=== PATIENT | female | born 1980 | race Caucasian/White ===

== ENCOUNTER → 2017-06-06 16:01 | Outpatient (CLI) | payer OTHER, SELFPAY ==
[2017-06-13 11:08] LABS: HPV APTIMA, High Risk Negative (Negative)
== END ==
PROVIDERS: Visit Provider Nurse Practitioner Women's Health
DX: Z12.4 Encounter for screening for malignant neoplasm of cervix (principal)
CPT/HCPCS: 88175; G0145

== ENCOUNTER → 2017-10-23 06:01 | Outpatient (CLI) | payer OTHER, SELFPAY ==
[2017-10-23 07:52] LABS: AST(SGOT) 33 U/L (15-37); Alanine Aminotransfer ALT/SGPT 56 U/L (13-56); Albumin, Serum 3.5 g/dL (3.2-5.0); Alkaline Phosphatase 72 U/L (45-117); Anion Gap 8 (5-15); BUN 13 mg/dL (7-18); BUN/Creat Ratio 15.4 RATIO (10-20); Calcium,Total 8.3 mg/dL (8.5-10.1); Chloride 105 mmol/L (98-107); Cholesterol 95 mg/dL (200); Creatinine, Serum 0.84 mg/dL (0.55-1.02); EST Glomerular Filtration Rate 80 mL/min (>60); Est Glom Filt Rate - Afr Amer 97 mL/min (>60); Globulin 3.6 g/dL (2.2-4.2); Glucose 135 mg/dL (74-106); High Density Lipoprotein 35 mg/dL; Potassium 3.9 mmol/L (3.5-5.1); Protein, Total 7.1 g/dL (6.4-8.2); Sodium Level 139 mmol/L (136-145); T4 Free Direct 1.48 ng/dL (0.76-1.46); Triglycerides 170 mg/dL; Very Low Density Lipoprotein 34 mg/dL (5-40)
[2017-10-23 08:30] LABS: Hemoglobin A1c 6.8 % (4.2-6.3)
[2017-10-23 11:29] LABS: Microalbumin,Random Urine < 5.0 mg/L (NO RANGE EST.)
== END ==
DX: E11.69 Type 2 diabetes mellitus with other specified complication (principal); E78.2 Mixed hyperlipidemia; E03.8 Other specified hypothyroidism; E06.3 Autoimmune thyroiditis; Z08 Encounter for follow-up examination after completed treatment for malignant neoplasm; Z85.850 Personal history of malignant neoplasm of thyroid; Z90.89 Acquired absence of other organs; E66.09 Other obesity due to excess calories; Z68.38 Body mass index [BMI] 38.0-38.9, adult; Z79.84 Long term (current) use of oral hypoglycemic drugs; Z92.3 Personal history of irradiation; R59.9 Enlarged lymph nodes, unspecified
CPT/HCPCS: 36415; 80053; 80061; 82043; 82570; 83036; 84439; 84443

== ENCOUNTER → 2017-10-23 15:03 | Outpatient (CLI) | payer OTHER, SELFPAY ==
--- NOTE | 2017-10-23 15:06 | US_ITS ---
STUDY: THYROID ULTRASOUND REASON FOR EXAM: Female, 36 years old. Lymph nodes TECHNIQUE: Ultrasound evaluation of the thyroid was performed with real-time and static anderson-scale imaging. COMPARISON: May 02, 2017. FINDINGS: RIGHT LOBE: Status right post thyroidectomy. LEFT LOBE: Status left post thyroidectomy. There is a cyst within the left thyroid region measuring 3 mm. 3 lymph nodes and blood noted lateral to the right thyroid region measuring 1.1 to 1.3 cm. A lymph node is noted lateral to the left thyroid region measuring 1.8 cm. US/Thyroid IMPRESSION: Multiple lymph nodes are again noted bilaterally which do not appear to be pathologic. Small cyst in the left thyroid region. Status post thyroidectomy. Electronically Signed: Feliberto Bateman DO at 23:44 EDT Tel [phone], Service support ,
== END ==
DX: R59.9 Enlarged lymph nodes, unspecified (principal); E03.8 Other specified hypothyroidism; E06.3 Autoimmune thyroiditis; Z08 Encounter for follow-up examination after completed treatment for malignant neoplasm; Z85.850 Personal history of malignant neoplasm of thyroid
CPT/HCPCS: 76536

== ENCOUNTER → 2018-05-07 06:30 | Outpatient (CLI) | payer OTHER, SELFPAY ==
[2017-12-19 17:00] VITALS: BMI 40.9
[2018-05-07 07:13] LABS: Microalbumin,Random Urine 5.2 mg/L (NO RANGE EST.); Microalbumin:Creatinine Ratio 3.4 mg/g CRE (<30 mg/g CRE)
[2018-05-07 07:39] LABS: AST(SGOT) 33 U/L (15-37); Alanine Aminotransfer ALT/SGPT 53 U/L (13-56); Albumin, Serum 3.6 g/dL (3.2-5.0); Alkaline Phosphatase 68 U/L (45-117); Anion Gap 11 (5-15); BUN 11 mg/dL (7-18); BUN/Creat Ratio 13.1 RATIO (10-20); Calcium,Total 8.7 mg/dL (8.5-10.1); Chloride 105 mmol/L (98-107); Cholesterol 116 mg/dL (200); Creatinine, Serum 0.84 mg/dL (0.55-1.02); EST Glomerular Filtration Rate 80 mL/min (>60); Est Glom Filt Rate - Afr Amer 97 mL/min (>60); Globulin 3.5 g/dL (2.2-4.2); Glucose 157 mg/dL (74-106); High Density Lipoprotein 36 mg/dL; Protein, Total 7.1 g/dL (6.4-8.2); Sodium Level 140 mmol/L (136-145); T4 Free Direct 1.62 ng/dL (0.76-1.46); Thyroid Stim Hormone (TSH) 0.69 uIU/mL (0.358-3.74); Triglycerides 200 mg/dL; Very Low Density Lipoprotein 40 mg/dL (5-40)
[2018-05-07 08:21] LABS: Hemoglobin A1c 7.4 % (4.2-6.3)
== END ==
DX: E11.69 Type 2 diabetes mellitus with other specified complication (principal); E78.2 Mixed hyperlipidemia; E03.8 Other specified hypothyroidism; E06.3 Autoimmune thyroiditis; Z08 Encounter for follow-up examination after completed treatment for malignant neoplasm; Z85.850 Personal history of malignant neoplasm of thyroid
CPT/HCPCS: 36415; 80053; 80061; 82043; 82570; 83036; 84439; 84443

== ENCOUNTER → 2018-07-01 07:14 | Outpatient (CLI) | payer OTHER, SELFPAY ==
[2017-12-19 17:00] VITALS: BMI 40.9
[2018-07-01 07:33] LABS: Hematocrit 42.6 % (37-47); Mean Corp Hgb Conc 32.9 g/gl (32-36); Mean Corpuscular Hgb 28.4 pg (27.0-32.0); Mean Corpuscular Volume 86.4 fL (81-99); Mean Platelet Vol. 10.3 fl (6.2-12.0); Platelet Count 241 K/mm3 (150-450); RBC Distribution Width CV 12.9 % (11.6-14.6); RBC Distribution Width SD 39.9 fl (35.1-43.9); Red Blood Count 4.93 M/mm3 (4.2-5.4)
[2018-07-01 07:35] LABS: Scan Indicated on CBC? Y/N NO
== END ==
DX: D64.9 Anemia, unspecified (principal); R53.83 Other fatigue
CPT/HCPCS: 36415; 85027

== ENCOUNTER 2018-07-17 11:50 | Emergency (ER) | payer OTHER, SELFPAY ==
[2018-07-17 11:51] VITALS: BP 136/84; PULSE 111; RESP 16; TEMP 36.4; O2SAT 95; BMI 39.9
--- NOTE | 2018-07-17 12:15 | RAD_ITS ---
STUDY: X-RAY - LEFT ANKLE REASON FOR EXAM: Female, 37 years old. No left ankle, swelling. TECHNIQUE: 3 view(s) of the ankle. COMPARISON: None. FINDINGS: Normal visualized distal tibia and fibula. Normal medial and lateral malleoli. Normal tibiotalar articulation and ankle mortise. Normal visualized talus and calcaneus. The visualized subtalar, talonavicular, calcaneocuboid and tarsal articulations are normal. There is no demonstrated fracture. Mild anterolateral soft tissue swelling. RAD/Ankle min 3 Views IMPRESSION: Anterolateral soft tissue swelling. No acute fracture of the left ankle. Electronically Signed: Nishant Cruz MD at 12:37 EDT , Service support ,
--- NOTE | 2018-07-17 12:51 | ED.DCSUM_ITS ---
- ER Visit Summary Date of Service: 07/17/18 Chief Complaint: Ankle pain History of Present Illness: The patient is a 37 F with left lateral ankle pain after rolling it at work. No other injuries or complaints. Physical Examination: Patient has left lateral ankle tenderness and swelling. No deformity otherwise. No laxity. Neurovascular intact distally. Skin intact. Test Results: X-rays show soft tissue swelling without fracture. Emergency Department Course and Treatment: Patient declined pain medicine. Aircast, crutches. Rest, ice, elevate. Vbpy-[id number] medicine for pain. Follow-up with [facility]. Treatment Plan: As above Disposition: Discharge Impression: 1. Left ankle sprain This note was generated with [employer] dictation software. It may contain incorrect words, spelling, and punctuation that were not noted in review of the chart prior to signing ED Disposition - Plan for ED Patient: Referrals: [facility] Doctor,Out of [Primary Care Provider] -
--- NOTE | 2018-07-17 12:51 | ED.DEP ---
ED Disposition - Plan for ED Patient: Instructions: ED Sprain Ankle W X Ray Referrals: [facility] [GROUP OF PHYSICIANS] -
== END 2018-07-17 13:41 | disposition home or self-care (01) ==
LOC: ED 12:48
PROVIDERS: Emergency Provider Emergency Medicine
DX: S93.402A Sprain of unspecified ligament of left ankle, initial encounter (principal); X50.1XXA Overexertion from prolonged static or awkward postures, initial encounter; Y93.89 Activity, other specified; Y92.89 Other specified places as the place of occurrence of the external cause; Y99.0 Civilian activity done for income or pay
CPT/HCPCS: 73610; 99283

== ENCOUNTER → 2018-07-23 05:32 | Outpatient (CLI) | payer OTHER, SELFPAY ==
[2018-07-19 06:12] VITALS: BMI 39.9
[2018-07-23 08:47] LABS: T4 Free Direct 1.43 ng/dL (0.76-1.46); Thyroid Stim Hormone (TSH) 3.97 uIU/mL (0.358-3.74)
== END ==
DX: E03.8 Other specified hypothyroidism (principal); E06.3 Autoimmune thyroiditis; Z08 Encounter for follow-up examination after completed treatment for malignant neoplasm; Z85.850 Personal history of malignant neoplasm of thyroid
CPT/HCPCS: 36415; 84439; 84443

== ENCOUNTER → 2018-11-13 | Outpatient (CLI) | payer OTHER, SELFPAY ==
[2018-07-19 06:12] VITALS: BMI 39.9
--- NOTE | 2018-11-13 16:23 | US_ITS ---
ACR Level 3 findings have been noted. An addendum which confirms receipt of the report will follow. STUDY: THYROID ULTRASOUND REASON FOR EXAM: Female, 37 years old. History of thyroid cancer. TECHNIQUE: Ultrasound evaluation of the thyroid was performed with real-time and static anderson-scale imaging. COMPARISON: Thyroid ultrasound 05/02/2017 and 10/23/2017. FINDINGS: RIGHT LOBE: Status post thyroidectomy with no visible residual right thyroid tissue. LEFT LOBE: Status post thyroidectomy with no visible left-sided thyroid tissue. Similar to 10/24/2015 is a 0.4 cm cyst in the region of the left thyroidectomy bed. ISTHMUS: Status post thyroidectomy. No residual isthmic tissue is evident. 3 lymph nodes were measured lateral to the right thyroid bed. These measure 1.4 x 1.0 x 0.6 cm, 0.9 x 0.6 x 0.6 cm, and 1.2 x 0.7 x 0.5 cm and are similar to 10/23/2017. There is no evidence of lymph node necrosis or cystic change. A single lymph node lateral to the left lobe of thyroid measures 3.0 x 0.6 x 1.5 cm with no necrosis or cystic change. On the previous study, this lymph node measured 1.8 cm in greatest dimension. US/Thyroid IMPRESSION: Status post thyroidectomy with no appreciable residual thyroid tissue. Interval enlargement of a left-sided lymph node. While nonspecific, recurrence cannot be excluded. Consider follow-up nuclear medicine study, the type of which would depend on the pathology of the original thyroid cancer. Alternatively, the lymph node could be biopsied or closely followed. Electronically Signed: Ubaldo Perera, at 17:19 EDT Tel , Service support ,
== END | disposition home or self-care (01) ==
LOC: US 16:18
DX: R59.9 Enlarged lymph nodes, unspecified (principal); Z08 Encounter for follow-up examination after completed treatment for malignant neoplasm; Z85.850 Personal history of malignant neoplasm of thyroid
CPT/HCPCS: 76536

== ENCOUNTER → 2018-11-15 | Outpatient (CLI) | payer OTHER, SELFPAY ==
[2018-07-19 06:12] VITALS: BMI 39.9
[2018-11-15 08:29] LABS: Hemoglobin A1c 6.9 % (4.2-6.3); Microalbumin,Random Urine < 5.0 mg/L (NO RANGE EST.)
[2018-11-15 08:31] LABS: AST(SGOT) 28 U/L (15-37); Alanine Aminotransfer ALT/SGPT 50 U/L (13-56); Albumin, Serum 3.5 g/dL (3.2-5.0); Alkaline Phosphatase 71 U/L (45-117); Anion Gap 10 (5-15); BUN 15 mg/dL (7-18); BUN/Creat Ratio 18.2 RATIO (10-20); Calcium,Total 8.5 mg/dL (8.5-10.1); Chloride 104 mmol/L (98-107); Cholesterol 100 mg/dL (200); Creatinine, Serum 0.82 mg/dL (0.55-1.02); EST Glomerular Filtration Rate 82 mL/min (>60); Est Glom Filt Rate - Afr Amer 99 mL/min (>60); Globulin 3.5 g/dL (2.2-4.2); Glucose 156 mg/dL (74-106); High Density Lipoprotein 32 mg/dL; Sodium Level 138 mmol/L (136-145); Thyroid Stim Hormone (TSH) 6.65 uIU/mL (0.358-3.74); Triglycerides 204 mg/dL; Very Low Density Lipoprotein 41 mg/dL (5-40)
== END | disposition home or self-care (01) ==
LOC: LAB 07:00
DX: E03.8 Other specified hypothyroidism (principal); E06.3 Autoimmune thyroiditis; E11.69 Type 2 diabetes mellitus with other specified complication; E78.2 Mixed hyperlipidemia; Z08 Encounter for follow-up examination after completed treatment for malignant neoplasm; Z85.850 Personal history of malignant neoplasm of thyroid; Z79.84 Long term (current) use of oral hypoglycemic drugs
CPT/HCPCS: 36415; 80053; 80061; 82043; 82570; 83036; 84439; 84443

== ENCOUNTER → 2019-01-13 06:56 | Outpatient (CLI) | payer OTHER, SELFPAY ==
[2018-07-19 06:12] VITALS: BMI 39.9
[2019-01-13 08:10] LABS: T4 Free Direct 1.45 ng/dL (0.76-1.46); Thyroid Stim Hormone (TSH) 2.88 uIU/mL (0.358-3.74)
[2019-01-13 08:47] LABS: Vitamin D,25 Hydroxy 26.9 ng/mL (29.95-100.01)
== END ==
DX: E55.9 Vitamin D deficiency, unspecified (principal); E03.8 Other specified hypothyroidism; E06.3 Autoimmune thyroiditis
CPT/HCPCS: 36415; 82306; 84439; 84443

== ENCOUNTER → 2019-05-23 07:07 | Outpatient (CLI) | payer OTHER, SELFPAY ==
[2018-07-19 06:12] VITALS: BMI 39.9
[2019-05-23 07:55] LABS: Hematocrit 38.8 % (37-47); Hemoglobin 12.6 g/dL (12.0-15.0); Mean Corp Hgb Conc 32.5 g/dL (32-36); Mean Corpuscular Hgb 27.5 pg (27.0-32.0); Mean Corpuscular Volume 84.7 fL (81-99); Mean Platelet Vol. 10.4 fl (6.2-12.0); Platelet Count 223 K/mm3 (150-450); RBC Distribution Width CV 13.4 % (11.6-14.6); RBC Distribution Width SD 41.2 fl (35.1-43.9); Red Blood Count 4.58 M/mm3 (4.2-5.4); White Blood Count 5.9 K/mm3 (4.4-11.0)
[2019-05-23 08:15] LABS: Hemoglobin A1c 6.8 % (4.2-6.3)
[2019-05-23 08:26] LABS: AST(SGOT) 29 U/L (15-37); Alanine Aminotransfer ALT/SGPT 49 U/L (13-56); Albumin, Serum 3.7 g/dL (3.2-5.0); Alkaline Phosphatase 65 U/L (45-117); Anion Gap 7 (5-15); BUN 10 mg/dL (7-18); BUN/Creat Ratio 11.6 RATIO (10-20); Calcium,Total 8.6 mg/dL (8.5-10.1); Chloride 106 mmol/L (98-107); Cholesterol 88 mg/dL (200); Creatinine, Serum 0.86 mg/dL (0.55-1.02); EST Glomerular Filtration Rate 78 mL/min (>60); Est Glom Filt Rate - Afr Amer 94 mL/min (>60); Globulin 3.7 g/dL (2.2-4.2); Glucose 153 mg/dL (74-106); High Density Lipoprotein 33 mg/dL; Potassium 3.8 mmol/L (3.5-5.1); Protein, Total 7.4 g/dL (6.4-8.2); Sodium Level 137 mmol/L (136-145); Thyroid Stim Hormone (TSH) 0.96 uIU/mL (0.358-3.74); Triglycerides 126 mg/dL; Very Low Density Lipoprotein 25 mg/dL (5-40)
[2019-05-23 08:40] LABS: Vitamin D,25 Hydroxy 28.1 ng/mL (29.95-100.01)
[2019-05-23 09:44] LABS: Microalbumin,Random Urine 12.9 mg/L (NO RANGE EST.); Microalbumin:Creatinine Ratio 6.2 mg/g CRE (<30 mg/g CRE)
[2019-05-26 14:43] LABS: Thyroglobulin Antibody < 1.0 IU/mL (0.0-0.9)
== END ==
PROVIDERS: PCP Family Medicine
DX: D64.9 Anemia, unspecified (principal); R53.83 Other fatigue; E11.69 Type 2 diabetes mellitus with other specified complication; E78.2 Mixed hyperlipidemia; E03.8 Other specified hypothyroidism; E06.3 Autoimmune thyroiditis; Z08 Encounter for follow-up examination after completed treatment for malignant neoplasm; Z85.850 Personal history of malignant neoplasm of thyroid; E55.9 Vitamin D deficiency, unspecified
CPT/HCPCS: 36415; 80053; 80061; 82043; 82306; 82570; 83036; 84439; 84443; 85027; 86800

== ENCOUNTER → 2019-06-18 15:48 | Outpatient (CLI) | payer OTHER, SELFPAY ==
[2019-06-17 14:03] VITALS: BMI 39.9
--- NOTE | 2019-06-18 15:50 | BI_ITS ---
MAMMOGRAPHY - BILATERAL SCREENING REASON FOR EXAM: Female, 38 years old. Routine annual screening examination. PERTINENT HISTORY: Non-contributory. TECHNIQUE: Digital bilateral breast viet (3D mammographic acquisition) in the CC and MLO projections. 2-D mediolateral oblique (MLO) and craniocaudad (CC) views of both breasts were obtained. CAD: Full Field Digital Mammography with Computer Added Detection was performed. COMPARISON: None. Baseline examination. FINDINGS: Breast Composition: There are scattered areas of fibroglandular density. There are no dominant masses or suspicious calcifications. There is asymmetry of breast tissue were slightly more breast tissue is seen in the retroareolar region of the left breast as compared to the right side. The patient has had a prior sonogram of the left breast which was negative. Benign-appearing bilateral axillary lymph nodes. No other significant abnormalities are identified. BI/SCREEN MAMM (CAD) W/VIET BILAT IMPRESSION: Negative screening mammogram. Yearly followup mammogram recommended. (A) ASSESSMENT CATEGORY: BIRADS Category 2: Benign. A letter regarding these results will be sent to the patient by the facility within 30 days. Approximately 10% of breast cancers are not detected by mammography. A normal mammogram should not delay biopsy of a clinically suspicious abnormality. [id number] Electronically Signed: Tomas Murray, at 8:42 EDT , Service support ,
== END ==
PROVIDERS: PCP Family Medicine; Referring Provider Nurse Practitioner Women's Health; Visit Provider Nurse Practitioner Women's Health
DX: Z12.31 Encounter for screening mammogram for malignant neoplasm of breast (principal)
CPT/HCPCS: 77063; 77067

== ENCOUNTER → 2019-06-20 15:21 | Outpatient (CLI) | payer OTHER, SELFPAY ==
[2019-06-17 14:03] VITALS: BMI 39.9
--- NOTE | 2019-06-20 15:22 | US_ITS ---
STUDY: ULTRASOUND OF THE FEMALE PELVIS - COMPLETE REASON FOR EXAM: Female, 38 years old. RREGULAR MENSES HEAVY LMP: 05/27/2019 TECHNIQUE: Transabdominal and Transvaginal TECHNICAL QUALITY: Adequate. COMPARISON: None. FINDINGS: The uterus is anteverted and is tilted to the right side of the pelvis. The uterus measures 20.0 x 13.2 x 11.3 cm. There is a Nabothian cyst of the cervix. The endometrium was not identified. There is no demonstrated endometrial mass. There is a large uterine fibroid measuring 11.2 x 11.8 x 11.3 cm. I.U.D. - The patient does not have an I.U.D. the right ovary is not visualized. The left ovary is visualized. The left ovary measures 3.3 x 1.9 x 2.1 cm. There is no left ovarian cyst or ovarian mass. There is no visualized left adnexal mass or complex lesion. There is normal arterial and normal venous vascularity. There is no fluid in the cul-de-sac. The pre void volume of the bladder was 847 ml. Polycystic ovary disease: No. US/Transvaginal Non- IMPRESSION: Large uterine fibroid measuring 11.2 x 11.8 x 11.3 cm. The left ovary appears normal. The right ovary was not identified. There is no fluid in the cul-de-sac. Electronically Signed: Ubaldo Peoples MD at 20:00 EDT , Service support ,
--- NOTE | 2019-06-20 15:22 | US_ITS ---
STUDY: ULTRASOUND OF THE FEMALE PELVIS - COMPLETE REASON FOR EXAM: Female, 38 years old. RREGULAR MENSES HEAVY LMP: 05/27/2019 TECHNIQUE: Transabdominal and Transvaginal TECHNICAL QUALITY: Adequate. COMPARISON: None. FINDINGS: The uterus is anteverted and is tilted to the right side of the pelvis. The uterus measures 20.0 x 13.2 x 11.3 cm. There is a Nabothian cyst of the cervix. The endometrium was not identified. There is no demonstrated endometrial mass. There is a large uterine fibroid measuring 11.2 x 11.8 x 11.3 cm. I.U.D. - The patient does not have an I.U.D. the right ovary is not visualized. The left ovary is visualized. The left ovary measures 3.3 x 1.9 x 2.1 cm. There is no left ovarian cyst or ovarian mass. There is no visualized left adnexal mass or complex lesion. There is normal arterial and normal venous vascularity. There is no fluid in the cul-de-sac. The pre void volume of the bladder was 847 ml. Polycystic ovary disease: No. US/Pelvic (Non ) IMPRESSION: Large uterine fibroid measuring 11.2 x 11.8 x 11.3 cm. The left ovary appears normal. The right ovary was not identified. There is no fluid in the cul-de-sac. Electronically Signed: Ubaldo Peoples MD at 20:00 EDT , Service support ,
== END ==
PROVIDERS: PCP Family Medicine; Referring Provider Nurse Practitioner Women's Health; Visit Provider Nurse Practitioner Women's Health
DX: N92.0 Excessive and frequent menstruation with regular cycle (principal)
CPT/HCPCS: 76830; 76856

== ENCOUNTER 2019-08-05 08:30 | Inpatient (IN) | payer OTHER, SELFPAY ==
[2019-06-17 14:03] VITALS: BMI 39.9
[2019-08-05] VITALS (15 sets, daily range): BP systolic 90–124; BP diastolic 53–82; PULSE 59–98; RESP 14–18; TEMP 36.3–37.9; O2SAT 90–100; BMI 37.0
--- NOTE | 2019-08-05 | HYST_PTH ---
PATIENT: MAXWELL ORTEGA LOC: [facility]3 U#:[id number] AGE/SX: 38/F ROOM: MS314 RE08/05/[address]: Dr. Alessandra Kelly MD : 1980 BED: 1 DIS: 08/06/2019 SPEC #: [id number] RECD: 08/05/19 14:37 STATUS: TRESA RENneka #: [id number] JUSTINA: 08/05/19 00:[address]: Alessandra Kelly DEPT: SURGICAL PATHOLOGY RECD BY: Enoc Barth ENTERED: 08/06/19 12:17 SP TYPE: HYSTERECT OTHR DR: Dr. Reji Brennan DO Tissues: Uterus, NOS Procedures: Surgery Specimen Level V HEADER OPERATION: ERAS, total abdominal hysterectomy, bilateral salpingectomy PRE-OP DIAGNOSIS: Pelvic mass, abnormal uterine bleeding TISSUE SUBMITTED: Uterus, bilateral fallopian tubes MICROSCOPIC DIAGNOSIS Uterus and bilateral fallopian tubes, total abdominal hysterectomy and bilateral salpingectomy: Cervix - chronic cystic cervicitis. Endometrium - proliferative endometrium. Myometrium - intramural and submucosal leiomyomas (largest measuring 10.5 cm in greatest dimension). Bilateral fallopian tubes - no pathologic diagnosis. Left paratubal cyst. SJ:chris 08/07/19 MICROSCOPIC DESCRIPTION Slides are reviewed. GROSS DESCRIPTION Received in fixative is one container labeled with the patient's name and designated uterus, bilateral fallopian tubes. The specimen consists of a hysterectomy specimen consisting of uterus with cervix and attached bilateral fallopian tubes. The uterus with cervix weighs 832 gm. The body of the uterus is markedly enlarged. The uterus measures 18 x 17 x 11 cm. The serosal surface is douglass, glistening. The ectocervical mucosa is unremarkable. The external os is oval in contour. The endocervical canal measures 3 cm in length and the endocervical mucosa is douglass, glistening and unremarkable. The endometrial cavity is compressed to one side and measures 6.5 cm in length and 2 cm in width. The endometrium is douglass, glistening without any mass lesion and measures 0.1 cm in thickness. Sections of the uterine wall reveal a large intramural to subserosal mass measuring 10.5 cm in greatest dimension. Two smaller nodular masses are also noted measuring 0.5 and 1.5 cm in greatest dimension. The uninvolved uterine wall measures 2.5 cm in thickness. The right fallopian tube measures 4.5 cm in length and 0.5 cm in diameter. It is interrupted in the middle consistent with previous tubal occlusion. Sections reveal unremarkable cut surfaces. The left fallopian tube measures 3 cm in length and 0.5 cm in diameter. A paratubal cyst is also noted measuring 0.8 cm in greatest dimension. It is filled with clear fluid. The fimbrial end is identified. Marketing Researcher sections are submitted in 12 cassettes as follows: 1??anterior cervix, 2 - posterior cervix, 3 & 4 - anterior uterine wall, 5 & 6 - posterior uterine wall, 79??largest nodular mass, 10 - small nodular masses, 11 - right fallopian tube, 12 - left fallopian tube and paratubal cyst. / ELLEN:chris 08/06/19 TC:1 CPT: 31940
[2019-08-05 09:01] LABS: Hematocrit 38.5 % (37-47); Hemoglobin 12.6 g/dL (12.0-15.0); Mean Corp Hgb Conc 32.7 g/dL (32-36); Mean Corpuscular Hgb 27.5 pg (27.0-32.0); Mean Corpuscular Volume 84.1 fL (81-99); Mean Platelet Vol. 10.3 fl (6.2-12.0); Platelet Count 252 K/mm3 (150-450); RBC Distribution Width CV 13.2 % (11.6-14.6); RBC Distribution Width SD 40.3 fl (35.1-43.9); Red Blood Count 4.58 M/mm3 (4.2-5.4); White Blood Count 6.3 K/mm3 (4.4-11.0)
[2019-08-05 09:11] LABS: Magnesium 1.7 mg/dL (1.6-2.6)
[2019-08-05] MEDS: Scopolamine 1mg/72hr Patch 1 PATCH TRANSDERM. (09:13)
[2019-08-05] MEDS: Acetaminophen 500 MG Tablet 1000 MG PO ×3 (09:13→23:41)
[2019-08-05] MEDS: Phenazopyridine 95 MG Tablet 190 MG PO (09:14)
[2019-08-05] MEDS: Gabapentin 600 MG Tablet PO (09:14)
[2019-08-05] MEDS: Celecoxib 200 MG Capsule 400 MG PO (09:14)
[2019-08-05 09:15] LABS: Bedside Glucose 142 mg/dL (70-110)
[2019-08-05] MEDS: Enoxaparin 40 MG/0.4 ML Syringe SC (09:15)
[2019-08-05] MEDS: dexAMETHasone 10 MG/ML Vial 8 MG IV (09:29)
[2019-08-05] MEDS: Lactated Ringers 1,000 ML 40 ML IV ×2 (09:29→12:45)
--- NOTE | 2019-08-05 10:21 | PCM.HP.OB ---
- Problem List (1) Pelvic mass Status: Acute (2) Uterine fibroid Status: Acute Comment: 11cm. Plan consult and hysterectomy with Dr. Kelly (3) Diabetes mellitus Status: Acute (4) Jania's disease Status: Acute (5) Abnormal uterine bleeding Status: Acute History Date of Admission: 08/05/19 History of this : This is a 38 year-old, G [], P [], at weeks gestational age. 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 Hyperlipidemia E78.5 Thyroid cancer C73 Surgical History: Surgical History (Last Reviewed 06/17/19 @ 14:01 by Agnes Ronquillo) H/O thyroidectomy Z98.890, E89.0 H/O tubal ligation Z98.51 History of cholecystectomy Z98.890, Z90.49 History of tonsillectomy and adenoidectomy Z98.890 Allergies No Known Allergies Allergy (Verified 08/01/19 09:30) Home Medications: Home Medications calcium citrate-vitamin D3 315 mg-200 unit tablet 2 tab PO DAILY 06/06/17 colestipol 1 gram tablet 2 g PO DAILY 06/06/17 levothyroxine 175 mcg tablet 175 mcg PO DAILY 06/06/17 mecobalamin (vitamin B12) 1,000 mcg disintegrating tablet,sublingual 1,000 mcg SUBLINGUAL QDAY 06/06/17 rosuvastatin 10 mg tablet 10 mg PO QHS 06/06/17 ferrous sulfate 134 mg (27 mg iron) tablet 134 mg PO DAILY tab 12/19/17 metformin 500 mg tablet,extended release 24 hr 1,500 mg PO QDAY tab 06/17/19 Cholecalciferol (VIT D3) [Vitamin D] 1,000 unit PO DAILY 08/01/19 Smoking Status: Never smoker History Past Pregnancies: Past Pregnancies Delivery Date Name GA/ Weeks Outcome Route Wt Sex Labor Length Anesthesia Delivery Location Provider FOB Physical Exam Vitals: Vital Signs Temp Pulse Resp BP Pulse Ox 98.8 F 96 14 124/82 H 99 08/05/19 08:59 08/05/19 08:59 08/05/19 08:59 08/05/19 08:59 08/05/19 08:59 Assessment/Plan All Active Problems (Last Reviewed 06/17/19 @ 14:01 by Agnes Ronquillo) Pelvic mass (Acute) Abnormal uterine bleeding (Acute) Uterine fibroid (Acute) Sprain of unspecified ligament of left ankle, initial encounter (Acute) History of thyroidectomy (Acute) History of cholecystectomy (Acute) Tubal ligation status (Acute) History of tonsillectomy and adenoidectomy (Acute) Cellulitis of left forearm (Acute) Thyroid cancer (Acute) Hypercholesteremia (Acute) Diabetes mellitus (Acute) Jania's disease (Acute) This is a 38 year-old, G [], P [], at weeks gestational age.
--- NOTE | 2019-08-05 10:33 | PCM.HP.STD ---
Problem List (1) Pelvic mass Status: Acute (2) Uterine fibroid Status: Acute Comment: 11cm. Plan consult and hysterectomy with Dr. Kelly (3) Diabetes mellitus Status: Acute (4) Jania's disease Status: Acute (5) Abnormal uterine bleeding Status: Acute History of Present Illness Date of Admission: 08/05/19 The patient is a 38 year old F presents with abnormal uterine bleeding and pelvic mass. her uterus is significantly enlarged with multiple fibroids and she has pelvic pressure and pain with it. 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 Hyperlipidemia E78.5 Thyroid cancer C73 Allergies No Known Allergies Allergy (Verified 08/01/19 09:30) Home Medications: Ambulatory Orders Medication Instructions Recorded calcium citrate-vitamin D3 315 2 tab PO DAILY 06/06/17 mg-200 unit tablet colestipol 1 gram tablet 2 g PO DAILY 06/06/17 levothyroxine 175 mcg tablet 175 mcg PO DAILY 06/06/17 mecobalamin (vitamin B12) 1,000 1,000 mcg SUBLINGUAL QDAY 06/06/17 mcg disintegrating tablet,sublingual rosuvastatin 10 mg tablet 10 mg PO QHS 06/06/17 ferrous sulfate 134 mg (27 mg 134 mg PO DAILY tab 12/19/17 iron) tablet metformin 500 mg tablet,extended 1,500 mg PO QDAY tab 06/17/19 release 24 hr Cholecalciferol (VIT D3) [Vitamin 1,000 unit PO DAILY 08/01/19 D] Naproxen [Naprosyn] 250 - 500 mg PO Q8H PRN PRN #30 tab 08/05/19 Oxycodone HCl/Acetaminophen 1 - 2 tab PO Q6H PRN PRN 7 Days 08/05/19 [Percocet 5-325] #15 tab Surgical History: Surgical History (Last Reviewed 06/17/19 @ 14:01 by Agnes Ronquillo) H/O thyroidectomy Z98.890, E89.0 H/O tubal ligation Z98.51 History of cholecystectomy Z98.890, Z90.49 History of tonsillectomy and adenoidectomy Z98.890 Smoking Status: Never smoker Tobacco Use: Non-smoker Review of Systems Constitutional: Denies: Fever, Malaise Eyes: Denies: Blurred vision, Vision Change HEENT: Denies: Head Aches, Visual Changes Cardiovascular: Denies: Chest Pain, Palpitations Respiratory: Denies: Cough, Shortness of Breath, Wheezing Gastrointestinal: Reports: - - pelvic pain and pressure. Denies: Abdominal Pain, Diarrhea, Nausea, Vomiting Genitourinary: Denies: Dysuria, Hematuria Gynecological: Reports: Vaginal bleeding Musculoskeletal: Denies: Joint Pain, Muscle pain Skin: Denies: Lesions, Rash Neurological: Denies: Blurred vision, Focal weakness, Headaches Psychiatric: Denies: Anxiety, Depression Endocrine: Denies: Heat/ Cold Intolerance Hematologic/ Lymphatic: Denies: Easy Bruising, Easy Bleeding VTE Information - Inpt Only VTE Present on Admission: No Patient Problems: Active and Suspected Problems (Last Reviewed 06/17/19 @ 14:01 by Agnes Ronquillo) Pelvic mass (Acute) Abnormal uterine bleeding (Acute) - Physical Exam Vitals/I&O's: Vital Signs Temp Pulse Resp BP Pulse Ox 98.8 F 96 14 124/82 H 99 08/05/19 08:59 08/05/19 08:59 08/05/19 08:59 08/05/19 08:59 08/05/19 08:59 Oxygen Delivery Method Room Air Weight: 222 lb 10.67 oz Body Mass Index (BMI) 37.0 General: Alert, Oriented x3 HEENT: Atraumatic, Normocephalic Oral: Moist Mucosa Neck: Trachea Midline Lungs: Clear to auscultation, Normal air movement Cardiovascular: Regular rate, Regular Rhythm Abdomen: Soft, Non Tender, Non-Distended, - - enlarged uterine mass Extremities: No edema Neurological: Neuro grossly intact Laboratory Results 08/05/19 08:50: WBC 6.3, RBC 4.58, Hgb 12.6, Hct 38.5, MCV 84.1, MCH 27.5, MCHC 32.7, RDW Std Deviation 40.3, RDW Coeff of Tony 13.2, Plt Count 252, MPV 10.3 08/05/19 08:50: Magnesium 1.7 08/05/19 08:50: Blood Type O POSITIVE, Antibody Screen NEGATIVE 08/05/19 09:07: POC Glucose 142 H Current Medications Lactated Ringer's () 1,000 mls @ 40 mls/hr IV .Q25H [facility] Last Admin: 08/05/19 09:29 Dose: 40 mls/hr Documented by: Insulin Human Lispro (Humalog Effie (Bkc)) 0 unit SC Q4H PRN PRN; Protocol PRN Reason: BG >/= 180, SEE PROTOCOL Assessment/Plan All Active Problems (Last Reviewed 06/17/19 @ 14:01 by Agnes Ronquillo) Pelvic mass (Acute) Abnormal uterine bleeding (Acute) Uterine fibroid (Acute) Sprain of unspecified ligament of left ankle, initial encounter (Acute) History of thyroidectomy (Acute) History of cholecystectomy (Acute) Tubal ligation status (Acute) History of tonsillectomy and adenoidectomy (Acute) Cellulitis of left forearm (Acute) Thyroid cancer (Acute) Hypercholesteremia (Acute) Diabetes mellitus (Acute) Jania's disease (Acute) 38 yo with enlarged uterus pelvic mass with fibroids, abnormal uterine bleeding After discussing the patient's diagnosis and treatment plan options, patient wishes to proceed with surgical management. I have discussed with the patient the risks, benefits, and alternatives of the procedure which include but are not limited to risks of anesthesia, bleeding, infection, possible damage to bowel, bladder, or surrounding vasculature which could lead to additional surgery to evaluate any complications. Patient agrees to procedure and wishes to proceed. plan [facility]. Essential Procedure Criteria Procedure Essential: Yes Criteria Note: On 06/24/2019 the [place] Department of Health ([facility]) Public Order signed by [facility] Director Breann Ocampo M.D., regarding the Management of Non-Essential Surgeries and Procedures for the purpose of preserving Personal Protective Equipment (PPE) and critical hospital capacity and resources within [place] went into effect as of 06/25/2019 at 5:00PM. According to the [facility] Public Order: This action will remain in full force and effect until the State of Emergency declared by the Governor no longer exists or the Director of the [facility] rescinds or modifies this Order.. This [facility] order stated all non-essential or elective surgeries and procedures that utilize PPE should be delayed unless there is undue risk to the current or future health of a patient. After reviewing the aforementioned [facility] Public Order and the patients clinical case, I have determined that the scheduled procedure meets the criteria to go forward. Risk to Patient if Procedure Delayed: Presence of severe symptoms causing an inability to perform ADL's
[2019-08-05] MEDS: Cefazolin 2 GM in 0.9% Normal Saline 100 ML IV (10:56)
[2019-08-05 13:06] LABS: Bedside Glucose 237 mg/dL (70-110)
[2019-08-05] MEDS: Insulin Lispro 100 UNIT/ML INSULN.PEN SC ×3 (13:13→22:23)
--- NOTE | 2019-08-05 13:54 | PCM.OPRPT ---
Problem List (1) Pelvic mass Status: Acute (2) Uterine fibroid Status: Acute Comment: 11cm. Plan consult and hysterectomy with Dr. Kelly (3) Diabetes mellitus Status: Acute (4) Jania's disease Status: Acute (5) Abnormal uterine bleeding Status: Acute Report of Operation Date of Procedure: 08/05/19 Pre-Operative Diagnosis: fibroid uterus pelvic mass aub pelvic pain Post-Operative Diagnosis: same Surgery/Procedure Performed:: angelina mims Description of Surgical Findings:: enlarged fibroid uterus nl ovaries bilaterally pelt dropper: Thea Henderson Type of Anesthesia:: General Special Medications: danish Specimen's removed: uterus and tubes Drains: rick Estimated Blood Loss (mL): 250 Fluids Replaced: crystalloid Description of Procedure: Patient was taken back to the operating room placed under general anesthesia was prepped and draped in the normal sterile fashion in the dorsal supine position. Pfannenstiel skin incision was made with a scalpel and carried through the underlying layer the fascia with the scalpel fascia was nicked in the midline incision extended superiorly and inferiorly dissecting off the rectus bellies sharply and bluntly. Peritoneum entered digitally incision stretched laterally. Abdominal wall retractor inserted and laps inserted to obtain adequate visualization. Bilateral fallopian tubes were transected from the mesosalpinx using a Mili clamp and 0 Monocryl suture. Utero-ovarian ligaments were transected bilaterally followed by the round ligaments which were transected bilaterally and the broad ligament opened and bladder flap created. There is limited mobility due to the significantly enlarged uterus with the uterine arteries were dissected out bilaterally and clamped cut and suture. Additional blood vessels were noted due to the large fibroids and these were transected as the uterus was from the pelvic sidewall down to the level of the cervix. Entire cervix was removed after clamping across the base with Z clamps after ensuring adequate dissection of the bladder. The cuff was closed with several [id number] sutures of 0 Vicryl and there was a raw appearance but overall hemostasis was noted. Danish was placed over the area and excellent hemostasis was confirmed. All laps were removed and all sponge lap and needle counts were correct x2 the peritoneum was closed with 3-0 Vicryl and the fascia closed with 0 PDS double loop. Subcutaneous tissue irrigated and reapproximated with 3-0 Monocryl and skin closed with 4-0 Monocryl. She was awoken and taken recovery in stable condition Grafts/Implants Used: none - Complications none - Admit VTE Documentation VTE Present on Admission: No VTE Mechan Device Prophylaxis: SCD's Multi Select Codes - Urinary/Genital Urinary/Genital CPT Codes: [address] [facility]
--- NOTE | 2019-08-05 14:04 | DCINST_ITS ---
Discharge Diet: No Restrictions Discharge Activity: Return to Normal Activity, May Not Drive - while taking narcotic pain medications. May resume sexual activity in: 6-8 weeks Call your doctor if your incision/area has: Continuous Slow Oozing, Sudden Increased Bleeding, Increased Pain/ Swelling, Increased Redness, Foul Smelling Discharge Call your doctor if you observe: Fever of 101 or Higher Allergies/Adverse Reactions: Allergies No Known Allergies Allergy (Verified 08/01/19 09:30) Medications to take at Discharge calcium citrate-vitamin D3 315 mg-200 unit tablet 2 tab PO DAILY 06/06/17 colestipol 1 gram tablet 2 g PO DAILY 06/06/17 levothyroxine 175 mcg tablet 175 mcg PO DAILY 06/06/17 mecobalamin (vitamin B12) 1,000 mcg disintegrating tablet,sublingual 1,000 mcg SUBLINGUAL QDAY 06/06/17 rosuvastatin 10 mg tablet 10 mg PO QHS 06/06/17 ferrous sulfate 134 mg (27 mg iron) tablet 134 mg PO DAILY tab 12/19/17 metformin 500 mg tablet,extended release 24 hr 1,500 mg PO QDAY tab 06/17/19 Cholecalciferol (VIT D3) [Vitamin D] 1,000 unit PO DAILY 08/01/19 Naproxen [Naprosyn] 250 - 500 mg PO Q8H PRN PRN #30 tab 08/05/19 Oxycodone HCl/Acetaminophen [Percocet 5-325] 1 - 2 tab PO Q6H PRN PRN 7 Days #15 tab 08/05/19 The following prescriptions were given: Naproxen [Naprosyn] 250 - 500 mg PO Q8H PRN PRN #30 tab PRN Reason: MILD PAIN Transmission Status: Received by [facility] Oxycodone HCl/Acetaminophen [Percocet 5-325] 1 - 2 tab PO Q6H PRN PRN 7 Days #15 tab PRN Reason: Pain Transmission Status: Received by [facility] Primary Care Physician: Reji Brennan DO [Primary Care Provider] - Test Results: Test results from this visit will be discussed in further detail at your follow- up appointment, if applicable. Please Follow Up With: Alessandra Kelly MD - [phone] When: in 2 weeks
[2019-08-05] MEDS: Lactated Ringers 1,000 ML 70 ML IV ×2 (16:00→21:43)
[2019-08-05] MEDS: Ketorolac 30 MG/ML Syringe IV ×2 (17:29→23:41)
[2019-08-05 18:46] LABS: Bedside Glucose 207 mg/dL (70-110)
[2019-08-05] MEDS: oxyCODONE 5 MG Tablet PO (19:16)
[2019-08-05] MEDS: Ondansetron ODT 4 MG Tablet PO (19:59)
[2019-08-05] MEDS: Docusate Sodium 100 MG Capsule PO (22:23)
[2019-08-05] MEDS: Atorvastatin Calcium 20 MG Tablet PO (22:23)
[2019-08-05 22:31] LABS: Bedside Glucose 172 mg/dL (70-110)
[2019-08-05] MEDS: 0.9% Saline Lock 10 ML Syringe IV (23:43)
[2019-08-06 03:43] VITALS: BP 113/62; PULSE 77; RESP 16; TEMP 36.9; O2SAT 99
[2019-08-06] MEDS: Acetaminophen 500 MG Tablet 1000 MG PO ×2 (05:23→12:14)
[2019-08-06] MEDS: 0.9% Saline Lock 10 ML Syringe IV (05:23)
[2019-08-06] MEDS: Ketorolac 30 MG/ML Syringe IV ×2 (05:23→09:58)
[2019-08-06] MEDS: Levothyroxine 175 MCG Tablet PO (05:23)
[2019-08-06 06:35] LABS: Hematocrit 31.7 % (37-47); Hemoglobin 10.4 g/dL (12.0-15.0); Mean Corp Hgb Conc 32.8 g/dL (32-36); Mean Corpuscular Volume 82.3 fL (81-99); Mean Platelet Vol. 10.5 fl (6.2-12.0); Platelet Count 227 K/mm3 (150-450); RBC Distribution Width CV 13.4 % (11.6-14.6); RBC Distribution Width SD 40.3 fl (35.1-43.9); Red Blood Count 3.85 M/mm3 (4.2-5.4); White Blood Count 10.3 K/mm3 (4.4-11.0)
[2019-08-06 06:41] LABS: Bedside Glucose 140 mg/dL (70-110)
[2019-08-06 06:57] LABS: Anion Gap 6 (5-15); BUN 8 mg/dL (7-18); Calcium,Total 8.3 mg/dL (8.5-10.1); Chloride 107 mmol/L (98-107); Creatinine, Serum 0.72 mg/dL (0.55-1.02); EST Glomerular Filtration Rate 94 mL/min (>60); Est Glom Filt Rate - Afr Amer 114 mL/min (>60); Estimated Creatinine Clearance 93.46 ml/min; Glucose 153 mg/dL (74-106); Potassium 3.7 mmol/L (3.5-5.1); Sodium Level 139 mmol/L (136-145)
[2019-08-06 08:00] VITALS: O2SAT 92
[2019-08-06] MEDS: metFORMIN (XR) 500 MG Tablet 1500 MG PO (08:28)
--- NOTE | 2019-08-06 08:54 | PN.OBGYN_ITS ---
Patient Problems: Active and Suspected Problems (Last Reviewed 06/17/19 @ 14:01 by Agnes Ronquillo) Pelvic mass (Acute) Abnormal uterine bleeding (Acute) Subjective: patient recovering well, denies CP, SOB, N, or V. patient is ambulating, voiding ,tolerating adequate po, and pain is controlled with oral medications. - Physical Exam Vitals/I&O's: Vital Signs Temp Pulse Resp BP Pulse Ox 98.5 F 77 16 113/62 99 08/06/19 03:43 08/06/19 03:43 08/06/19 03:43 08/06/19 03:43 08/06/19 03:43 Oxygen Flow Rate (L/min) 2 Oxygen Delivery Method Nasal Cannula Weight: 222 lb 10.67 oz Body Mass Index (BMI) 37.0 Finger Stick Blood Glucose 237 Intake and Output for Last 24 Hours 08/04/19 08/05/19 08/06/19 23:59 23:59 23:59 Intake Total 1776.17 / 2176.17 400 / 400 Output Total 200 / 1300 2100 / 2100 Balance 1576.17 / 876.17 -1700 / -1700 General: Alert, Oriented x3 Laboratory Results 08/05/19 08:50: WBC 6.3, RBC 4.58, Hgb 12.6, Hct 38.5, MCV 84.1, MCH 27.5, MCHC 32.7, RDW Std Deviation 40.3, RDW Coeff of Tony 13.2, Plt Count 252, MPV 10.3 08/05/19 08:50: Magnesium 1.7 08/05/19 08:50: Blood Type O POSITIVE, Antibody Screen NEGATIVE 08/05/19 09:07: POC Glucose 142 H 08/05/19 12:58: POC Glucose 237 H 08/05/19 17:44: POC Glucose 207 H 08/05/19 22:14: POC Glucose 172 H 08/06/19 06:13: WBC 10.3, RBC 3.85 L, Hgb 10.4 L, Hct 31.7 L, MCV 82.3, MCH 27.0, MCHC 32.8, RDW Std Deviation 40.3, RDW Coeff of Tony 13.4, Plt Count 227, MPV 10.5 08/06/19 06:13: Sodium 139, Potassium 3.7, Chloride 107, Carbon Dioxide 26.0, Anion Gap 6, BUN 8, Creatinine 0.72, Estim Creat Clear Calc 93.46, Est GFR (MDRD) Af Amer 114, Est GFR (MDRD) Non-Af 94, BUN/Creatinine Ratio 11.0, Glucose 153 H, Calcium 8.3 L 08/06/19 06:32: POC Glucose 140 H Current Medications Acetaminophen (Tylenol) 1,000 mg PO Q6 [facility] Last Admin: 08/06/19 05:23 Dose: 1,000 mg Documented by: Atorvastatin Calcium (Lipitor) 20 mg PO QHS [facility] Last Admin: 08/05/19 22:23 Dose: 20 mg Documented by: Calcium/Vitamin D (Os-Davonte 500mg + D) 2 tablet PO DAILY [facility] Cholecalciferol (Vitamin D (25mcg)) 1,000 unit PO DAILY [facility] Colestipol HCl (Colestid Tablet) 2 gm PO DAILY [facility] Docusate Sodium (Colace) 100 mg PO BID [facility] Last Admin: 08/05/19 22:23 Dose: 100 mg Documented by: Enoxaparin Sodium (Lovenox) 40 mg SC DAILY [facility] Lactated Ringer's () 1,000 mls @ 70 mls/hr IV .[id number] [facility] Stop: 08/06/19 14:02 Last Admin: 08/05/19 21:43 Dose: 70 mls/hr Documented by: Insulin Human Lispro (Humalog Kwikpen (Bkc)) 0 unit SC [facility]; Protocol Last Admin: 08/06/19 06:36 Dose: Not Given Documented by: Ketorolac Tromethamine (Toradol (Bkc)) 30 mg IV Q6H [facility] Stop: 08/06/19 20:02 Last Admin: 08/06/19 05:23 Dose: 30 mg Documented by: Levothyroxine Sodium (Synthroid) 175 mcg PO DAILY@0600 [facility] Last Admin: 08/06/19 05:23 Dose: 175 mcg Documented by: Magnesium Oxide (Mag-Ox 400) 400 mg PO DAILY PRN PRN PRN Reason: Constipation Metformin HCl (Glucophage Xr) 1,500 mg PO DAILYCM [facility] Last Admin: 08/06/19 08:28 Dose: 1,500 mg Documented by: Nutritional Formula (Lactose Free) (Ensure Enlive) 120 ml PO TIDCM [facility] Last Admin: 08/06/19 08:27 Dose: 120 ml Documented by: Ondansetron HCl (Zofran Odt) 4 mg PO Q6H PRN PRN PRN Reason: NAUSEA Last Admin: 08/05/19 19:59 Dose: 4 mg Documented by: Oxycodone HCl (Oxyir) 5 - 10 mg PO Q4H PRN PRN PRN Reason: Pain Score 4-10/10 Last Admin: 08/05/19 19:16 Dose: 5 mg Documented by: Sodium Chloride () 10 - 40 ml IV UD PRN PRN Reason: SALINE FLUSH Last Admin: 08/06/19 05:23 Dose: 10 ml Documented by: Medical Necessity - Tobacco Use Smoking Status: Never smoker Tobacco Use: Non-smoker Assessment/Plan All Active Problems (Last Reviewed 06/17/19 @ 14:01 by Agnes Ronquillo) Pelvic mass (Acute) Abnormal uterine bleeding (Acute) Uterine fibroid (Acute) Sprain of unspecified ligament of left ankle, initial encounter (Acute) History of thyroidectomy (Acute) History of cholecystectomy (Acute) Tubal ligation status (Acute) History of tonsillectomy and adenoidectomy (Acute) Cellulitis of left forearm (Acute) Thyroid cancer (Acute) Hypercholesteremia (Acute) Diabetes mellitus (Acute) 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 routine ERAS protocol postop care- increase ambulation, encourage oral intake and oral control of pain. lovenox and scds for dvt prophylaxis, patient stable for discharge to home tomorrow.
[2019-08-06 09:00] VITALS: RESP 18
[2019-08-06 09:43] VITALS: BP 114/68; PULSE 83; RESP 16; TEMP 36.4; O2SAT 92
--- NOTE | 2019-08-06 09:50 | CASEMGMT ---
RN SEAN Face to Face with patient for initial transition planning/care coordination assessment. RN CM introduced self and role at [facility]. Patient sitting in chair, alert and oriented. Patient willing to participate in assessment and is able to answer all questions appropriately. Care providers, pharmacy, and demographics verified. Patient wishes to discharge home, denies need for home health at this time. Patient states she has no further needs or concerns at this time. CM to follow for discharge planning needs that may arise. PCP: Reji Brnenan Specialists: [facility] Preferred Pharmacy: [facility] Retail Insurance: [facility] [employer] Prescription Benefit: yes Living Will/HPOA: none LNOK: Living Arrangements: Patient lives with in single story with 3 step and railing. Patient is independent at home. Transportation: self/ DME/HHC: Patient states she has a glucometer at home. Patient denies previous HHC. Disposition Plan: Patient to discharge home with family support and follow-up plans in place. Nery SMITH, RN, CM
[2019-08-06] MEDS: Calcium Carb/Vitamin D 1 TABLET Tablet 2 TABLET PO (09:58)
[2019-08-06] MEDS: Docusate Sodium 100 MG Capsule PO (09:58)
[2019-08-06] MEDS: Enoxaparin 40 MG/0.4 ML Syringe SC (09:59)
[2019-08-06 11:25] LABS: Bedside Glucose 148 mg/dL (70-110)
[2019-08-06 14:02] VITALS: BP 94/64; PULSE 74; RESP 18; TEMP 37; O2SAT 98
== END 2019-08-06 15:14 | disposition home or self-care (01) | DRG 743 ==
LOC: ACINP 08:31 → MS3 11:55
PROVIDERS: Admitting Provider Obstetrics & Gynecology; PCP Family Medicine; Referring Provider Obstetrics & Gynecology; Visit Provider Obstetrics & Gynecology
PROC: 0UT90ZZ Resection of Uterus, Open Approach (ICD-10-PCS; CPT 58150; principal; 2019-08-05 10:10)
DX: D25.9 Leiomyoma of uterus, unspecified (principal); E11.9 Type 2 diabetes mellitus without complications; E78.5 Hyperlipidemia, unspecified; Z85.850 Personal history of malignant neoplasm of thyroid
CPT/HCPCS: 36415; 80048; 82962; 83735; 85027; 86850; 86900; 86901; 88307; 94762; 99251; J7120; A4216; G0463; J2405

== ENCOUNTER 2021-07-14 15:37 | Outpatient (CLI) | payer OTHER, SELFPAY ==
[2021-07-14 16:16] LABS: Absolute Lymphocyte Count 2.45 X10^3/uL (0.83-4.51); Absolute Neutrophil Count 4.4 X10^3/uL (2.0-7.7); Basophil# 0.06 X10^3/uL; Basophil% 0.8 % (0-1); Eosinophil# 0.18 X10^3/uL; Eosinophils% 2.3 % (0-5); Hematocrit 38.4 % (37-47); Hemoglobin 13.1 g/dL (12.0-15.0); Lymphocyte # 2.45 X10^3/ul (0.83-4.51); Lymphocyte % 31.8 % (19-41); Mean Corp Hgb Conc 34.1 g/dL (32-36); Mean Corpuscular Hgb 28.6 pg (27.0-32.0); Mean Corpuscular Volume 83.8 fL (81-99); Mean Platelet Vol. 10.1 fl (6.2-12.0); Monocyte% 7.8 % (0-10); NRBC Flagged by Analyzer 0 % (0-5); Platelet Count 260 K/mm3 (150-450); RBC Distribution Width CV 12.7 % (11.6-14.6); RBC Distribution Width SD 38.4 fl (35.1-43.9); Red Blood Count 4.58 M/mm3 (4.2-5.4); White Blood Count 7.7 K/mm3 (4.4-11.0)
== END 2021-07-14 23:59 | disposition home or self-care (01) ==
PROVIDERS: Referring Provider Obstetrics & Gynecology; Visit Provider Obstetrics & Gynecology
DX: R10.2 Pelvic and perineal pain (principal)
CPT/HCPCS: 36415; 85025

== ENCOUNTER 2021-07-14 16:11 | Outpatient (CLI) | payer OTHER, SELFPAY | END 2021-07-14 23:59 | disposition home or self-care (01) | LOC: LABSPEC 16:11 | PROVIDERS: Referring Provider Obstetrics & Gynecology; Visit Provider Obstetrics & Gynecology | DX: R10.2 Pelvic and perineal pain (principal) | CPT/HCPCS: 87086; 87088 ==

== ENCOUNTER 2021-07-20 07:47 | Outpatient (CLI) | payer OTHER, SELFPAY ==
--- NOTE | 2021-07-20 07:50 | US_ITS ---
STUDY: ULTRASOUND OF THE FEMALE PELVIS - COMPLETE REASON FOR EXAM: Female, 40 years old. Midline pelvic pain -- s/p hysterectomy TECHNIQUE: Transabdominal TECHNICAL QUALITY: Adequate. COMPARISON: Comparison is made with prior study dated 06/20/2019. FINDINGS: The patient is status post hysterectomy. The right ovary is visualized. The right ovary measures 3.4 cm x 3.5 cm x 2.5 cm. There is no right ovarian cyst or ovarian mass. There is no visualized right adnexal mass or complex lesion. There is normal arterial and normal venous vascularity. The left ovary is visualized. The left ovary measures 2.7 cm x 1.8 cm x 1.8 cm. There is no left ovarian cyst or ovarian mass. There is no visualized left adnexal mass or complex lesion. There is normal arterial and normal venous vascularity. There is no fluid in the cul-de-sac. The pre void volume of the bladder was 447 ml. US/Pelvic (Non ) IMPRESSION: Status post hysterectomy. No abnormality is seen. Electronically Signed: Tomas Murray MD at 13:00 EDT ,
== END 2021-07-20 23:59 | disposition home or self-care (01) ==
LOC: OPUS 07:47
PROVIDERS: Visit Provider Obstetrics & Gynecology
DX: R10.2 Pelvic and perineal pain (principal)
CPT/HCPCS: 76856; 93976

== ENCOUNTER → 2021-11-28 | Outpatient (CLI) | payer OTHER, SELFPAY ==
[2021-11-28 08:31] LABS: Hemoglobin A1c 7.1 % (3.8-5.6)
[2021-11-28 08:50] LABS: AST(SGOT) 18 U/L (15-37); Alanine Aminotransfer ALT/SGPT 37 U/L (13-56); Albumin, Serum 3.8 g/dL (3.2-5.0); Alkaline Phosphatase 71 U/L (45-117); Anion Gap 9 (5-15); BUN 13 mg/dL (7-18); BUN/Creat Ratio 13.6 RATIO (10-20); Calcium,Total 8.7 mg/dL (8.5-10.1); Chloride 104 mmol/L (98-107); Creatinine, Serum 0.96 mg/dL (0.55-1.02); EST Glomerular Filtration Rate 68 mL/min (>60); Est Glom Filt Rate - Afr Amer 82 mL/min (>60); Globulin 3.7 g/dL (2.2-4.2); Glucose 163 mg/dL (74-106); Potassium 4.1 mmol/L (3.5-5.1); Protein, Total 7.5 g/dL (6.4-8.2); Sodium Level 138 mmol/L (136-145); Thyroid Stim Hormone (TSH) 0.81 uIU/mL (0.358-3.74)
[2021-11-30 08:02] LABS: Anti-Thyroglobulin AB < 1.0 IU/mL (0.0-0.9); Thyroglobulin, Serum Qt. < 0.1 ng/mL (1.5-38.5)
== END | disposition home or self-care (01) ==
LOC: LAB 07:08
PROVIDERS: Referring Provider Internal Medicine Endocrinology, Diabetes & Metabolism; Visit Provider Internal Medicine Endocrinology, Diabetes & Metabolism
DX: E11.319 Type 2 diabetes mellitus with unspecified diabetic retinopathy without macular edema (principal); C73 Malignant neoplasm of thyroid gland; E89.0 Postprocedural hypothyroidism
CPT/HCPCS: 36415; 80053; 83036; 84432; 84443; 86376; 86800